=== PATIENT | male | born 1935 | race Caucasian/White ===

== ENCOUNTER 2017-03-20 11:53 | Inpatient (IN) | payer OTHER ==
[~2017-03-20] VITALS: Ht 167.6 cm; Wt 88.5 kg
--- NOTE | ~2017-03-20 | HC ---
[facility] [place] [address] CONSULTATION Name: BETTIE SHRESTHA Room #: 434-P ADM IN M.R.#: [id number] Admission: 03/21/17 Attend Phys: Rosita Richardson Discharge: Date of : 34 Report #: [id number] THIS REPORT FOR: //name// CC: Mouna Miner MD DATE OF SERVICE: 03/21/2017 PATIENT OF: Dr. Mouna Oleary and Dr. Richardson. CHIEF COMPLAINT: This is a very pleasant 81-year-old white male came to the ER with a severe L5 radiculopathy and inability to walk because he could not rely on his leg. He was falling frequently. He was also so weak that he was unable to get up out of the chair at home and had noticed that over the last 2 weeks, he was becoming progressively more short of breath and fatigued. He was noted on admission to have an iron deficiency anemia with heme-positive stools. His iron saturation is 4%. He denies any hematemesis, hematochezia, or melena. This is a reason for the gastrointestinal evaluation. PAST MEDICAL HISTORY: Significant for the worsening left radiculopathy at L5. He has a history of hyperlipidemia and hypertension. He has had possibly a TIA or stroke in the past and for that reason he has been on Plavix. He has gastroesophageal reflux and hiatal hernia. PAST SURGICAL HISTORY: Significant for skull fracture at age 4, he had tonsillectomy and adenoidectomy at age 11, and he fractured his hand at some other point in his life that required surgical repair. ALLERGIES: To ERYTHROSINE causes a rash. He is also ALLERGIC TO SULFA, AMOXICILLIN, and CEPHALOSPORINS. MEDICATIONS: Prior to admission included ascorbic acid, Plavix, glucosamine chondroitin, loratadine, multiple vitamins, Zocor, and terazosin. SOCIAL HISTORY: He drinks alcohol a couple of times a year, not extensively. He does not smoke. He did smoke until about 1976, he said he smoked a pipe for several years, but never smoked cigarettes or cigars. 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 FAMILY HISTORY: Negative for colon polyps, colon cancer, Crohn's disease, ulcerative colitis or celiac disease. REVIEW OF SYSTEMS: He denies any dysphagia or odynophagia. He does have occasional gastroesophageal reflux and he takes Tums with good relief for that. [facility] [address] [place] [address] CONSULTATION Name: BETTIE SHRESTHA Room #: 434-P [facility] IN [facility].#: [id number] Admission: 03/21/17 Attend Phys: Rosita Richardson Discharge: Date of : 34 Report #: [id number] He used to take proton pump inhibitors until he was started on Plavix and then he stopped taking PPIs. He has a history of a hiatal hernia, but no peptic ulcer disease. His weight is stable at 195 pounds. His appetite is good. He denies any abdominal pain. Denies any hematemesis, hematochezia, or melena. He has had no nausea or vomiting. Denies any history of jaundice, hepatitis, cholelithiasis, cholecystitis or pancreatitis. Nurse reports that he has had a black stool and that was heme positive when sent to the lab today. The patient states his last colonoscopy was about 12 years ago. He had an EGD at some point in his life remember when it was. PHYSICAL EXAMINATION: GENERAL: Reveals a well-developed, well-nourished 81-year-old white male who is in no obvious distress at rest, but he becomes easily fatigued and short of breath with exertion. HEENT: He is normocephalic, atraumatic. He is anicteric. HEART: Rate and rhythm are regular. He is in normal sinus rhythm right now. He does not ever be recalled being told that he was in atrial fibrillation. LUNGS: Clear to auscultation bilaterally. ABDOMEN: Rotund, but soft, bowel sounds present in all 4 quadrants. There is no palpable organomegaly or mass. There is no tenderness, rebound, or guarding. EXTREMITIES: Warm and dry. No peripheral cyanosis, clubbing, or edema. NEUROLOGIC: He appears grossly intact without lateralizing signs except for his left lower extremity. I did not do an extensive neurological exam on him. SIGNIFICANT LABORATORY DATA: BUN is elevated at 20. Liver enzymes are all normal. Iron level 18, TIBC 426, iron sats 4%. Hemoglobin 7.0 with a MCV of 69.2, RDW is 17.3, platelets and white count are normal. He has 2+ microcytosis with adequate reticulocyte count. Noncontrast MRI of the spine revealed moderate disk desiccation and diffuse posterior disk bulge at L2-L3 with mild effacement of the ventral thecal sac without significant central spinal cord stenosis. At L3-L4, there is a gfmxvzid-hj-bnblym disk desiccation with diffuse posterior disk bulge, the disk bulge abuts the descending L4 nerve roots without evidence of displacement or obvious impingement. There was mild bilateral facet arthrosis and bilateral foraminal disk bulging and endplate ossific ridge resulting in mild medial bilateral neural foraminal stenosis. At L5-S1, there is a asnl-sj-gcockjcf disk desiccation with mild diffuse disk bulge, severe bilateral facet arthrosis was noted. There is a superimposed shallow left foraminal disk protrusion, which abuts the under surface of the exiting left L5 nerve root. There is narrowing of thecal sac to 10 mm consistent with vovb-ah-jseiarnk canal stenosis. On L4-L5, there is a moderate disk desiccation with severe bilateral facet arthrosis and severe facet spurring, left greater than right. There is effacement of the descending L5 nerve root seen on axial T2 . There was narrowing of the thecal sac to 8 mm consistent with mmkgsgig-rn-ybwcpb canal stenosis. There is bilateral subarticular zone [facility] [address] [place] [address] CONSULTATION Name: BETTIE SHRESTHA Room #: 434-P ADM IN M.R.#: [id number] Admission: 03/21/17 Attend Phys: Rosita Richardson Discharge: Date of : 34 Report #: [id number] stenosis due to facet spurring. There is bilateral foraminal disk bulging and endplate osteophyte ridging resulting in mild medial right and moderate medial left neural foraminal stenosis. I think it is consistent with the symptoms that the patient is describing. IMPRESSION: 1. Newly diagnosed iron deficiency anemia with heme-positive stools. The patient denies any obvious blood loss such as hematemesis, hematochezia or melena, but he is heme positive today and his stool was some dark black colored. 2. Dyspnea on exertion. He is lightheaded with increasing fatigue and weakness over the past 2 weeks. I think this is a result of his anemia. 3. The patient has been on Plavix. He has a history of a possible transient ischemic attack versus cerebrovascular accident, this was managed earlier at this hospital. 4. Hyperlipidemia. 5. L4-L5 radiculopathy, severe. The patient cannot rely on his left leg to support him. 6. Hypertension. RECOMMENDATIONS: My recommendations are as follows: I agree with blood transfusions and iron infusions. We will hold his Plavix for now. We will prep him for colonoscopy on Saturday, for EGD and colonoscopy on Saturday. If these are negative, he will need an M2 capsule study. We will monitor his H and H closely and start him on some proton pump inhibitors. Thank you very much once again for allowing me to participate in his care, Dr. Richardson and Dr. Oleary. <ELECTRONICALLY SIGNED> By: Heena Campbell DO 03/21/17 1836 1101 1540 Heena Campbell DO /nt
--- NOTE | ~2017-03-20 | EKG ---
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 : 1935 Requested By: Brayan Michelle Order Number: [id number] MD: Zak Nova Measurements Intervals [place] Rate: 68 P: 10 MT: 189 QRS: 6 QRSD: 113 T: 18 QT: 403 QTc: 429 Interpretive Statements Sinus rhythm Abnormal R-wave progression, early transition Compared to ECG 09/28/2016 09:33:32 No significant change was found Electronically Signed On 03-21-2017 7:45:36 CDT by Zak Nova [email or web address] <ELECTRONICALLY SIGNED> By: Zak Nova MD, [facility] 03/21/17 0745 1247 124 Zak Nova MD, [facility] /EPI
[~2017-03-20 11:53] MED LIST: ALAVERT10 MG PO; ASPIRIN325; GLUCOSAMINE &1 EAC1; HYTRIN 2MG CAPSU2 M1 PO; MULTIVITAMINS1 EAC7 PO; NIACIN SR 250250 MG PO; PLAVIX 75 MG TA75 M1 PO; PRILOSEC 20 MG20 MG PO; VITAMINC500 PO; ZOCOR 20 MG TAB20 M1 PO; ZOFRAN ODT4 MG PO
[2017-03-20 11:54] VITALS: BP 182/59
[2017-03-20 12:37] LABS: ABSOLUTE NEUTROPHILS 6.3 thou/uL (1.4-8.2); BASOPHILS 0.8 % (0.0-2.0); EOSINOPHILS 1.3 % (0.0-3.0); HEMATOCRIT 22.9 % (42.0-52.0); LYMPHOCYTES 16.1 % (24.0-44.0); MCH 21.3 pg (26.0-34.0); MCHC 30.8 g/dL (28.0-37.0); MCV 69.2 fL (80.0-100.0); MONOCYTES 10.6 % (1.0-8.0); PLATELET COUNT 331 thou/uL (150-400); POLYS 71.2 % (36.0-66.0); RBC 3.31 mil/uL (4.50-6.00); RDW 17.3 % (10.5-14.5); WBC 8.8 thou/uL (4.0-11.0)
[2017-03-20 12:38] LABS: MANUAL DIFF NO
[2017-03-20 12:42] LABS: ANION GAP 11 mmol/L (7-16); BUN 20 mg/dL (7-18); CALCIUM 8.5 mg/dL (8.5-10.1); CHLORIDE 105 mmol/L (98-107); CO2 23 mmol/L (21-32); CREATININE 1.2 mg/dL (0.7-1.3); GLUCOSE 115 mg/dL (74-106); POTASSIUM 4.6 mmol/L (3.5-5.1); SODIUM 139 mmol/L (136-145)
[2017-03-20 12:49] LABS: ALBUMIN 3.7 g/dL (3.4-5.0); ALKALINE PHOSPHATASE 54 U/L (46-116); MAGNESIUM 2.1 mg/dL (1.8-2.4); SGOT 20 U/L (15-37); SGPT 21 U/L (30-65); TOTAL BILIRUBIN 0.4 mg/dL (<0.1-1.0); TOTAL PROTEIN 6.8 g/dL (6.4-8.2); TROPONIN-I < 0.04 ng/mL (<0.04-0.07)
[2017-03-20 12:56] LABS: OVALOCYTES FEW; POLYCHROMASIA OCCASIONAL
[2017-03-20 12:57] LABS: ANISOCYTOSIS 1+; MICROCYTES 2+
[2017-03-20 15:01] LABS: OBSERVED RETIC COUNT 2.89 % (0.6-2.6)
[2017-03-20 15:04] LABS: % SATURATION 4 % (20-39); IRON 18 ug/dL (65-175); TIBC 426 ug/dL (250-450); UIBC 408 ug/dL
[2017-03-20 17:00] VITALS: BP 198/80
[2017-03-20 19:31] VITALS: BP 155/65
[2017-03-21 05:10] VITALS: BP 165/73
[2017-03-21 08:00] VITALS: BP 153/88
[2017-03-21 08:16] VITALS: BP 153/88
[2017-03-21 12:32] LABS: HEMATOCRIT 24.3 % (42.0-52.0); HEMOGLOBIN 7.4 gm/dL (14.0-18.0); MCH 20.6 pg (26.0-34.0); MCHC 30.3 g/dL (28.0-37.0); MCV 68.2 fL (80.0-100.0); RBC 3.57 mil/uL (4.50-6.00); RDW 17.5 % (10.5-14.5); WBC 11.3 thou/uL (4.0-11.0)
[2017-03-21 14:31] VITALS: BP 145/67; BP 148/52
[2017-03-21 20:00] VITALS: BP 153/66
[2017-03-22 04:00] VITALS: BP 151/67
[2017-03-22 06:29] LABS: HEMATOCRIT 26.2 % (42.0-52.0); HEMOGLOBIN 7.9 gm/dL (14.0-18.0); MCH 21.6 pg (26.0-34.0); MCHC 30.1 g/dL (28.0-37.0); MCV 71.6 fL (80.0-100.0); RBC 3.66 mil/uL (4.50-6.00)
[2017-03-22 08:00] VITALS: BP 155/63
[2017-03-22] MEDS ORDERED: PROTONIX40 M1 PO (10:08)
[2017-03-22 13:29] VITALS: BP 155/63
[2017-03-26] MEDS ORDERED: GLUCOSAMINE CH1 EAC1 PO (13:53)
[2017-03-26] MEDS ORDERED: PROTONIX40 M1 PO (13:54)
[2017-03-26] MEDS ORDERED: PLAVIX 75 MG TA75 M1 PO (13:56)
== END 2017-03-22 13:57 | disposition home or self-care (01) | DRG 74 ==
LOC: ER 11:53 → EROBS 14:19 → 4S 14:19
PROVIDERS: Emergency Medicine; Hospitalist
PROC: 30233N1 Transfusion of Nonautologous Red Blood Cells into Peripheral Vein, Percutaneous Approach (ICD-10-PCS; principal; 2017-03-21)
DX: G54.4 Lumbosacral root disorders, not elsewhere classified (principal); I10 Essential (primary) hypertension; G83.30 Monoplegia, unspecified affecting unspecified side; T14.8 Other injury of unspecified body region; E78.5 Hyperlipidemia, unspecified; K21.9 Gastro-esophageal reflux disease without esophagitis; D50.9 Iron deficiency anemia, unspecified; M48.06 Spinal stenosis, lumbar region; Z86.73 Personal history of transient ischemic attack (TIA), and cerebral infarction without residual deficits; Z88.1 Allergy status to other antibiotic agents; Z88.2 Allergy status to sulfonamides; Z88.8 Allergy status to other drugs, medicaments and biological substances

== ENCOUNTER → 2017-03-27 | Outpatient (CLI) | payer OTHER ==
[~2017-03-27] VITALS: Ht 167.6 cm; Wt 88.5 kg
[~2017-03-27] MED LIST changes: +GLUCOSAMINE CH1 EAC1 PO; +PROTONIX40 M1 PO
--- NOTE | ~2017-03-27 | P ---
[facility] [place] [address] PROCEDURE REPORT Name: BETTIE SHRESTHA Room #: REG Miguelangel Ochoa#: [id number] Admission: 03/27/17 Attend Phys: Heena Campbell DO Discharge: Date of : 34 Report #: [id number] THIS REPORT FOR: //name// CC: Mouna Deras DATE OF SERVICE: 03/27/2017 PROCEDURE: Colonoscopy with biopsies. INDICATION FOR PROCEDURE: Evaluate heme positive stool, iron deficiency anemia. DESCRIPTION OF PROCEDURE: Informed consent for this procedure was obtained prior to the administration of any medication. The risks of the procedure which include bleeding, perforation, infection, complications of sedation and the possibility I could miss something have been explained to the patient and he has indicated his consent by signing. Propofol 410 mg was slowly titrated before and during this procedure and the EGD that preceded it. Digital rectal exam revealed no palpable masses or abnormalities. The TAKOn colonoscope was introduced through the anal sphincter and advanced under direct visualization to the ileocecal valve and peak into the terminal ileum revealed no abnormalities of the distal terminal ileum. The ileocecal valve is normal. The cecum appears normal. Appendiceal orifice appears normal. In the ascending colon, no abnormalities were seen. Retroflex view in the ascending colon did not reveal any other lesions on the back sides of the folds in the ascending colon. Hepatic flexure, normal mucosa. Transverse colon, normal mucosa. Splenic flexure, normal mucosa. Descending colon at 50 cm, we began to see multiple diverticula in the descending colon that are uncomplicated. In the sigmoid colon, there are even more diverticula that are extensive. These are uncomplicated. At 25 cm in the sigmoid colon, there was a 5 mm sessile polyp removed completely with a biopsy forceps in several pieces and sent to pathology lab. Good hemostasis was noted after all biopsies. The remaining sigmoid mucosa appears normal. Rectum, normal mucosa. Retroflex view did not reveal any further abnormalities. The scope was withdrawn. The patient went to the recovery area in stable condition. He tolerated the procedure well. IMPRESSION: 1. Extensive uncomplicated left-sided diverticulosis. 2. A 5 mm polyp at 25 cm that was very sessile, removed as above in toto with regular biopsy forceps and sent to pathology lab. RECOMMENDATIONS: At this point are to proceed with an M2 videoscope capsule study today if possible and we will await the biopsy results. [address] [address] PROCEDURE REPORT Name: BETTIE SHRESTHA Room #: REG ZHOU Ochoa#: [id number] Admission: 03/27/17 Attend Phys: Heena Campbell DO Discharge: Date of : 34 Report #: [id number] Thank you very much once again for allowing me to participate in his care, Dr. Oleary. <ELECTRONICALLY SIGNED> By: Heena Campbell DO 03/27/17 2145 1055 1736 Heena Campbell DO /ovidio
--- NOTE | ~2017-03-27 | S ---
[facility] [place] [address] SURGICAL PATH RPT PROCEDURE Name: BETTIE BORDEN Room #: REG CLI M.Kev.#: [id number] Admission: 03/27/17 Date of : 34 Discharge: Report #: [id number] Path Case #: [id number] PATHOLOGY REPORT COLLECTION DATE: 03/27/2017 RECEIVED DATE: 03/27/2017 SUBMITTING PHYS: Dr. Heena Campbell OTHER PHYS: Dr. Mouna Oleary SPECIMEN(S) RECEIVED: A.Bx of gastritis B.Polyp at 25 cm * * * * * * * * * * * * FINAL DIAGNOSIS: A. Gastric biopsy, "biopsy of gastritis": - Fragments of gastric mucosa revealing focal chronic reactive gastropathy. - There is no evidence of acute cryptitis, granulomas, adenomatous change, or malignancy. - The immunoperoxidase stain for Helicobacter is negative. B. Colonic mucosa, "polyp at 25 cm": - Fragments of tubular adenoma. - There is no evidence of high-grade dysplasia or malignancy. PATHOLOGIST: Elver Bowen M.D. REPORT ELECTRONICALLY SIGNED BY: Elver Bowen M.D. DATE/TIME: 03/29/2017 10:48 * * * * * * * * * * * * GROSS PATHOLOGY: A. Received in formalin labeled "Bettie Borden, biopsy of gastritis," are two segments of valle soft tissue measuring 0.7 x 0.4 x 0.1 cm in aggregate dimensions and ranging from 0.5 to 0.7 cm in maximum dimension. The specimen is submitted entirely in cassette A1. B. Received in formalin labeled "Bettie Borden, polyp at 25 cm," are five segments of valle soft tissue measuring 0.9 x 0.8 x 0.2 cm in aggregate dimensions and ranging from 0.3 to 0.5 cm in maximum dimension. The specimen is submitted entirely in cassette B1. (CAA; 03/28/2017) CLINICAL HISTORY: Anemia A: R/O H. pylori [facility] [place] [address] SURGICAL PATH RPT PROCEDURE Name: BETTIE BORDEN Room #: REG CLI M.R.#: [id number] Admission: 03/27/17 Date of : 34 Discharge: Report #: [id number] Path Case #: [id number] INITIAL CPT CODE(S): A; 07776, 78806 B; 66550 Professional services performed by [facility] at [address], [place] [address] Technical services performed by [facility] at [address] [place] [address], [facility] [address] [address]. [facility] [place] [address] PHONE: [phone] DIRECTOR: Nj Tirado M.D. * * * END OF REPORT * * *
--- NOTE | ~2017-03-27 | P ---
[facility] [place] [address] PROCEDURE REPORT Name: FADYBETTIE Room #: REG [facility] Don#: [id number] Admission: 03/27/17 Attend Phys: Heena Campbell DO Discharge: Date of : 34 Report #: [id number] THIS REPORT FOR: //name// CC: Mouna Deras DATE OF SERVICE: 03/27/2017 PROCEDURE: EGD with biopsy. He is a patient of Dr. Mouna Oleary. INDICATION FOR PROCEDURE: Iron deficiency anemia and heme positive stool of undetermined etiology. The patient has not had any hematemesis, hematochezia or melena. DESCRIPTION OF PROCEDURE: Informed consent for this procedure was obtained prior to the administration of any medication. The risks of the procedure which include bleeding, perforation, infection, complications of sedation and the possibility I could miss something have been explained to the patient. He has indicated his consent by signing. Propofol 410 mg was slowly titrated before and during this procedure for patient comfort by the anesthesia service. The Plaxican upper videoscope was introduced through the upper esophageal sphincter and advanced under direct visualization to the third portion of the duodenum. Findings are noted on withdrawal of the scope. The duodenal mucosa appears normal throughout its entirety and yellow bile was noted in the lumen of the second portion. Pylorus, normal mucosa. Antrum, erythematous mucosa. Body, normal mucosa. Biopsies are obtained x 2, 1 from the antrum and 1 from the body of the stomach for histopathology to evaluate for possible H. pylori infection. Good hemostasis was noted after these biopsies. Retroflex view in the stomach revealed a moderately sized hiatal hernia. The scope was withdrawn to the esophagus. The Z-line is appropriately located at the top the gastric folds and appears normal. The esophageal mucosa appears normal throughout its entirety. The scope was withdrawn. The patient was turned for colonoscopy. IMPRESSION: Antral erythema. Other than that, normal esophagogastroduodenoscopy to descending duodenum except for the moderate hiatal hernia. RECOMMENDATIONS: To proceed with colonoscopy at this time and we will await the biopsy results. [facility] [address] [place] [address] PROCEDURE REPORT Name: BETTIE SHRESTHA Room #: REG CLMiguelangel Ochoa#: [id number] Admission: 03/27/17 Attend Phys: Heena Campbell DO Discharge: Date of : 34 Report #: [id number] Thank you very much once again for allowing me to participate in his care, Dr. Oleary. <ELECTRONICALLY SIGNED> By: Heena Campbell DO 03/27/17 2145 1055 1732 Heena Campbell DO /nt
[2017-03-27 08:38] LABS: HEMATOCRIT 35.5 % (42.0-52.0); MCH 22.9 pg (26.0-34.0); RBC 4.8 mil/uL (4.50-6.00); WBC 11.6 thou/uL (4.0-11.0)
[2017-03-27 08:45] LABS: CALCIUM 9.3 mg/dL (8.5-10.1); CREATININE 1.3 mg/dL (0.7-1.3); POTASSIUM 4.2 mmol/L (3.5-5.1)
== END | disposition home or self-care (01) ==
LOC: GI 07:50
PROVIDERS: Internal Medicine Gastroenterology
DX: D12.5 Benign neoplasm of sigmoid colon (principal); K31.89 Other diseases of stomach and duodenum; K57.30 Diverticulosis of large intestine without perforation or abscess without bleeding; K44.9 Diaphragmatic hernia without obstruction or gangrene; I10 Essential (primary) hypertension; D64.9 Anemia, unspecified; K21.9 Gastro-esophageal reflux disease without esophagitis; Z86.73 Personal history of transient ischemic attack (TIA), and cerebral infarction without residual deficits; Z87.891 Personal history of nicotine dependence
CPT/HCPCS: 62110; 62900

== ENCOUNTER 2017-03-28 08:20 | Observation (INO) | payer OTHER ==
[~2017-03-28] VITALS: Ht 167.6 cm; Wt 88.5 kg
--- NOTE | ~2017-03-28 | HC ---
[facility] [place] [address] CONSULTATION Name: BETTIE SHRESTHA Room #: 444-P DRE Ochoa#: [id number] Admission: 03/28/17 Attend Phys: Randal Henderson DO Discharge: 03/30/17 Date of : 34 Report #: [id number] THIS REPORT FOR: //name// CC: Mouna Henderson REASON FOR CONSULTATION: Weakness and lightheadedness. HISTORY OF PRESENT ILLNESS: The patient sounds is an 81-year-old gentleman with a moderately complicated past history. He presented last Saturday with for profound weakness, exertional breathlessness and was found to have severe iron deficiency anemia with the hemoglobin of 7.4. No evidence of GI blood loss. He received 1 unit of packed cells and one bag of iron and his hemoglobin at discharge was 7.4, followup hemoglobin yesterday at the time of a colonoscopy was 11.0. He had both upper and lower endoscopy performed and capsule endoscopy. No bleeding source as of yet has been identified, although he was noted to have diverticulitis on his colonoscopy without bleeding. Today, this morning, he stood up, became profoundly weak and dyspneic. He had terrible standing. He presented back to the emergency department where his hemoglobin was 9.5. Troponin was ordered in this setting and minimally elevated at 0.09, followup troponin 6 hours later was 0.08. He denies heart failure symptoms, palpitations, near syncope or syncope. He has had TIA several years ago, which occurred while on aspirin, he was migrated from aspirin to Plavix. He ended up seeing a neurologist at [facility] where an MRI suggested a prior stroke. He has also had severe lumbar spinal stenosis with radiculopathy and left leg weakness, last week when he was admitted with leg weakness which seems to come and go. He was treated with a dose of intravenous steroids and this seems to have improved his left leg symptoms. Plans for an epidural, which have been on hold. He has been off of Plavix for the past week. ALLERGIES: He is allergic to AMOXICILLIN, CEPHALOSPORIN, ERYTHROMYCIN and SULFA. MEDICATIONS: Include Hytrin 2 mg daily, simvastatin 20 mg daily, Protonix 40 mg daily, Plavix 75 mg daily. PAST MEDICAL HISTORY: Medical records have been reviewed and include a history of hypertension, dyslipidemia, prior TIA, severe lumbar spinal stenosis with left leg radiculopathy confirmed by EMG, skull fracture at the age of 4, and tonsillectomy. SOCIAL HISTORY: He is . 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 FAMILY HISTORY: Notable for mother who had heart problems. REVIEW OF SYSTEMS: All systems negative except as that noted above. [facility] [address] [place] [address] CONSULTATION Name: FADYBETTIE Room #: 444-P DRE Ochoa#: [id number] Admission: 03/28/17 Attend Phys: Randal Henderson DO Discharge: 03/30/17 Date of : 34 Report #: [id number] PHYSICAL EXAMINATION: GENERAL: A pleasant gentleman in no distress. VITAL SIGNS: Blood pressure is 150/57, heart rate of 59 and regular. He is afebrile. HEENT: There are neither xanthelasma, subcutaneous xanthomata, oral mucosal or digital cyanosis or kyphoscoliosis present. CHEST: Clear to auscultation and percussion. CARDIOVASCULAR: Regular rate and rhythm with normal S1, S2. No murmurs or rubs. ABDOMEN: Soft and nontender. EXTREMITIES: Without cyanosis, clubbing or edema. Radial pulses are 2+. NEUROLOGIC: He is alert with a nonfocal exam. EKG, sinus rhythm, normal tracing. LABORATORY DATA: Sodium is 136, potassium 4.5, creatinine 1.0. Serum iron level is very low at 18, saturations 4%, proBNP of 88, coagulation parameters normal. Chest x-ray is normal, echocardiogram is normal, EKG is normal. IMPRESSION: 1. Tiny troponin elevation, not entirely unexpected in the setting of severe iron deficiency anemia. 2. Anemia, unknown source. 3. Prior transient ischemic attack, maintained on Plavix. 4. Severe central spinal stenosis L4-L5 with effacement of the exiting left L5 nerve root. 5. Dyslipidemia. RECOMMENDATIONS: 1. Continued of Plavix for now. 2. Obtain results of capsule endoscopy. 3. Intravenous iron infusion. 4. At this point, I believe that his symptoms are on the basis of his anemia, certainly coronary artery disease is a possibility, although to go down that path of evaluation and possible treatment would potentially involve aggressive antiplatelet and anticoagulant therapy, which is currently contraindicated. At this point, maintaining his hemoglobin is the primary treatment recommendation. I have discussed these issues with the patient and his . Thank you for asking me to participate in his care. <ELECTRONICALLY SIGNED> By: Zak Nova MD, FACC 03/30/17 1630 1839 0224 Zak Nova MD, FACC /nt
--- NOTE | ~2017-03-28 | EKG ---
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
--- NOTE | ~2017-03-28 | 2DMMODE ---
[facility] [address] [facility] [email or web address] [address] 2 D/M-MODE ECHOCARDIOGRAM Name: FADYBETTIE Room #: 444-P ADM IN M.R.#: [id number] Admission: 03/28/17 Attend Phys: Randal Henderson, Discharge: Date of : 33 Date of Service: 03/28/17 1548 Report #: [id number] THIS REPORT FOR: //name// APPROVED REPORT Study performed: 03/28/2017 14:53:18 EXAM: Comprehensive 2D, Doppler, and color-flow Echocardiogram Patient Location: Echo lab Room #: 444 Other Information Study Quality: Adequate Indications Dyspnea Hypertension/HDD 2D Dimensions RVDd: 30.40 mm LVEF(%): 66.24 (>50%) IVSd: 14.40 (7-11mm) LVOT Diam: 18.40 (18-24mm) LVDd: 30.52 mm PWd: 13.58 (7-11mm) Ascending Ao: 29.87 (22-36mm) LVDs: 19.75 (25-40mm) Aortic Root: 32.46 mm IVC: 21.00 mm Daley's LVEF: 66.24 % Volumes Left Atrial Volume (Systole) Single Plane 4CH: 44.20 mL Single Plane 2CH: 44.25 mL LA ESV Index: 25.00 mL/m2 Aortic Valve AoV Peak Raudel.: 1.19 m/s AO Peak Gr.: 5.64 mmHg LVOT Max P.38 mmHg LVOT Max V: 0.92 m/s KM Vmax: 2.06 cm2 Mitral Valve E/A Ratio: 0.7 MV Decel. Time: 325.77 ms MV E Max Raudel.: 0.75 m/s MV A Raudel.: 1.07 m/s MV PHT: 94.47 ms [facility] [address] [address] 2 D/M-MODE ECHOCARDIOGRAM Name: BETTIE SHRESTHA Room #: 444-P [facility] IN M.R.#: [id number] Admission: 03/28/17 Attend Phys: Randal Henderson, Discharge: Date of : 34 Date of Service: 03/28/17 1548 Report #: [id number] IVRT: 152.25 ms Pulmonary Valve PV Peak Raudel.: 1.37 m/s PV Peak Gr.: 7.52 mmHg Pulmonary Vein P Vein S: 0.33 m/s P Vein A: 0.16 m/s P Vein D: 0.50 m/s P Vein A Dur.: 93.4 msec P Vein S/D Ratio: 0.66 Tricuspid Valve TR Peak Raudel.: 2.94 m/s RAP Estimate: 10.00 mmHg TR Peak Gr.: 34.61 mmHg Left Ventricle The left ventricle is normal size. Mild concentric left ventricular hypertrophy. The left ventricular systolic function is normal. The left ventricular ejection fraction is within the normal range. LVEF is 65%. Grade I - abnormal relaxation pattern. Right Ventricle The right ventricle is normal size. The right ventricular systolic function is normal. Atria The left atrium size is normal. The right atrium size is normal. Aortic Valve The Aortic valve is sclerotic. No aortic regurgitation is present. There is no aortic valvular stenosis. Mitral Valve The mitral valve is normal in structure. There is no mitral valve regurgitation noted. No evidence of mitral valve stenosis. Tricuspid Valve The tricuspid valve is normal in structure. Trace tricuspid regurgitation. Pulmonic Valve The pulmonary valve is normal in structure. Trace pulmonic regurgitation. Great Vessels The aortic root is normal in size. IVC is dilated and collapses [facility] [address] [place] [address] 2 D/M-MODE ECHOCARDIOGRAM Name: BETTIE SHRESTHA Room #: 444-P [facility] IN .R.#: [id number] Admission: 03/28/17 Attend Phys: Randal Henderson, Discharge: Date of : 34 Date of Service: 03/28/17 1548 Report #: [id number] >50% with inspiration. Pericardium There is no pericardial effusion. There is no pleural effusion. <Conclusion> The left ventricle is normal size. The left ventricular systolic function is normal. Grade I - abnormal relaxation pattern. The right ventricle is normal size. The left atrium size is normal. The Aortic valve is sclerotic. There is no aortic valvular stenosis. The mitral valve is normal in structure. Trace tricuspid regurgitation. There is no pericardial effusion. <ELECTRONICALLY SIGNED> By: Eber Newton MD 03/28/17 1548 1548 1548 Eber Newton MD /INF
--- NOTE | ~2017-03-28 | HPC ---
[facility] [place] [address] PAIN MANAGEMENT CONSULTATION Name: BETTIE SHRESTHA Room #: 444-P DRE Ocoha#: [id number] Admission: 03/28/17 Attend Phys: Randal Henderson DO Discharge: 03/30/17 Date of : 34 Report #: [id number] THIS REPORT FOR: //name// CC: Mouna Richardson MD DATE OF SERVICE: 03/29/2017 CHIEF COMPLAINT: Weakness in the legs and I was going to have an epidural injection this week. FOLLOWUP HISTORY: The patient is an 81-year-old gentleman who has been seen in the hospital. He was complaining about pain in his left leg with weakness. He did report that he had fallen. The patient has had some problems with weakness in his leg in 2016. He reports that he has been ambulating with a cane. He has felt that his leg has "given out." He had some weakness in his lower extremities in the past. At that time, he was found to have had a transient ischemic attack. He has been treated with Plavix. He has withheld his Plavix with the thought that he would have an epidural steroid injection this week. It was found that his hemoglobin was low at 7.9. The patient has been transfused a unit of blood. He has also been seen by the stitcher operator. An EGD and colonoscopy have been performed. ALLERGIES: AMOXICILLIN caused a rash. CEPHALOSPORIN, rash and SULFA. CURRENT MEDICATIONS: Protonix 40 mg daily, Hytrin 2 mg daily, loratadine 10 mg, ascorbic acid 500 mg, Zocor 20 mg, multivitamins, glucosamine chondroitin, Protonix 40 mg daily. Plavix has been held for the last week. PAST MEDICAL HISTORY: 1. Hypertension. 2. History of a stroke and transient ischemic attack, treated with Plavix. 3. Lumbar radiculopathy at L4-L5 causing severe weakness involving the left lower extremity to be weak. 4. Gastroesophageal reflux disease, controlled with the medications. 5. Hiatal hernia. 6. Dyslipidemia. 7. Iron deficiency anemia, hemoglobin in the 7s. SOCIAL HISTORY: A former smoker, quit greater than a year ago, occasional alcoholic use. PHYSICAL EXAMINATION: The patient is in a wheelchair. He is using a cane to help ambulate. [address] [address] PAIN MANAGEMENT CONSULTATION Name: BETTIE SHRESTHA Room #: 444-P DRE Ochoa#: [id number] Admission: 03/28/17 Attend Phys: Randal Henderson DO Discharge: 03/30/17 Date of : 34 Report #: [id number] MRI of the lumbar spine; MRI dated 03/20/2017 reveals: 1. At L3-L4, there is a moderate to severe disk desiccation with a diffuse posterior disk bulge. The disk bulge abuts the descending L4 nerve root. There is mild bilateral facet arthrosis. At L4-L5, there is moderate disk desiccation with severe bilateral facet arthrosis and severe facet spurring, left greater than right. There is effacement of the descending left L5 nerve seen. There is a narrowing of the thecal sac to 8 mm consistent with ixlgpqkx-jb-olhidf/neural foraminal canal stenosis. 2. At L5-S1, there is moderate disk desiccation with a mild diffuse disk bulge. There is severe bilateral facet arthrosis with small amount of fluid signal. There is superimposed shallow left foraminal disk protrusion which abuts the undersurface of the exiting L5 nerve root. Thecal sac narrows to 10 mm consistent with mild canal stenosis. IMPRESSION: 1. Lumbar radiculopathy involving the L5/L4 area. The patient has pain and discomfort consistent in the L4-L5 distribution on the left. 2. History of transient ischemic attack, treated with Plavix. The patient has held his Plavix for the last week. 3. Anemia. The patient has had hemoglobin in the 7 range. RECOMMENDATIONS: We discussed treatment options with the patient. We will proceed with an epidural steroid injection using the transforaminal approach on the left at L4-L5. Risks and benefits of the procedure were explained to the patient. We reviewed his MRI. PROCEDURE NOTE: The patient was placed in the prone position. Fluoroscopy was used to identify the left L4-L5 interspace. This area had been sterilely prepped with Betadine and infiltrated with 0.25% bupivacaine. A 20-gauge spinal needle was then advanced using fluoroscopy into the appropriate placement for the transforaminal injection. A 0.25% bupivacaine was infiltrated into this area. A total of 80 mg Depo-Medrol was injected. The patient's pain decreased to zero at the time of his discharge back to the hospital floor. He will follow up in the future as needed. We would like to thank you for letting us participate in his care. We hope he continues to improve. <ELECTRONICALLY SIGNED> By: Mika Sauer MD 04/10/17 0810 1343 0153 Mika Sauer MD /nt
--- NOTE | ~2017-03-28 | EKG ---
[address] [address] ELECTROCARDIOGRAM REPORT Name: FADYBETTIE Room #: 444-[facility] M.R.#: [id number] Admission: 03/28/17 Attend Phys: Randal Henderson DO Discharge: 03/30/17 Date of : 34 Report #: [id number] THIS REPORT FOR: //name// [facility] Test Date: 2017-03-29 Test Time: 06:46:57 Pat Name: BETTIE SHRESTHA Department: Room: 444 Gender: M Property Underwriter: angeline : 1935 Requested By: Zak Nova Order Number: [id number] MD: Zak Nova Measurements Intervals [place] Rate: 57 P: 16 NC: 196 QRS: 19 QRSD: 96 T: 85 QT: 416 QTc: 405 Interpretive Statements Sinus rhythm Atrial premature complex Abnormal R-wave progression, early transition Borderline ST and T abnormalities Compared to ECG 03/28/2017 09:09:20 Atrial premature complex(es) now present Electronically Signed On 03-30-2017 16:33:50 CDT by Zak Nova [email or web address] <ELECTRONICALLY SIGNED> By: Zak Nova MD, [facility] 03/30/17 1633 0646 0646 Zak Nova MD, [facility] /EPI
[2017-03-28 08:26] VITALS: BP 149/65
[2017-03-28 09:34] LABS: HEMATOCRIT 29.9 % (42.0-52.0); HEMOGLOBIN 9.5 gm/dL (14.0-18.0); MCH 23.1 pg (26.0-34.0); MCHC 31.9 g/dL (28.0-37.0); MCV 72.7 fL (80.0-100.0); RBC 4.11 mil/uL (4.50-6.00); RDW 20.5 % (10.5-14.5); WBC 8.1 thou/uL (4.0-11.0)
[2017-03-28 09:42] LABS: CALCIUM 8.7 mg/dL (8.5-10.1); CREATININE 1.5 mg/dL (0.7-1.3); POTASSIUM 4.5 mmol/L (3.5-5.1)
[2017-03-28 09:48] LABS: APTT 26.6 Seconds (24.5-32.8); INR 1.1; PROTIME 11.4 Seconds (9.3-11.4)
[2017-03-28 09:50] LABS: TROPONIN-I 0.09 ng/mL (<0.04-0.07)
[2017-03-28 11:43] VITALS: BP 156/69
[2017-03-28 12:45] VITALS: BP 127/58
[2017-03-28 15:55] VITALS: BP 152/57
[2017-03-28 20:15] VITALS: BP 142/61
[2017-03-29 04:23] VITALS: BP 158/73
[2017-03-29 05:55] LABS: HEMATOCRIT 30.1 % (42.0-52.0); HEMOGLOBIN 9.6 gm/dL (14.0-18.0); MCH 23.2 pg (26.0-34.0); MCV 72.4 fL (80.0-100.0); PLATELET COUNT 240 thou/uL (150-400); RBC 4.16 mil/uL (4.50-6.00); RDW 20.6 % (10.5-14.5); WBC 10.4 thou/uL (4.0-11.0)
[2017-03-29 05:58] LABS: MANUAL DIFF YES
[2017-03-29 05:59] LABS: CALCIUM 8.5 mg/dL (8.5-10.1); CREATININE 1.3 mg/dL (0.7-1.3); POTASSIUM 4.3 mmol/L (3.5-5.1)
[2017-03-29 07:13] VITALS: BP 148/63
[2017-03-29 07:14] LABS: ABSOLUTE NEUTROPHILS 8.1 thou/uL (1.4-8.2); ANISOCYTOSIS 2+; HYPOCHROMASIA 1+; MICROCYTES 1+; PLATELET ESTIMATE NORMAL; TOTAL CELL COUNT 100
[2017-03-29 07:15] LABS: OVALOCYTES OCCASIONAL; POIKILOCYTOSIS SLIGHT; POLYCHROMASIA SLIGHT
[2017-03-29 10:51] VITALS: BP 148/63
[2017-03-29 15:37] VITALS: BP 148/63
[2017-03-29 18:01] VITALS: BP 156/58
[2017-03-29 19:18] VITALS: BP 145/66
[2017-03-30 03:33] LABS: HEMATOCRIT 31.1 % (42.0-52.0); HEMOGLOBIN 9.9 gm/dL (14.0-18.0); MCHC 31.7 g/dL (28.0-37.0); MCV 72.8 fL (80.0-100.0); PLATELET COUNT 259 thou/uL (150-400); RBC 4.28 mil/uL (4.50-6.00); RDW 21.3 % (10.5-14.5); WBC 8.3 thou/uL (4.0-11.0)
[2017-03-30 03:44] LABS: CALCIUM 8.7 mg/dL (8.5-10.1); CREATININE 1.2 mg/dL (0.7-1.3); POTASSIUM 4.2 mmol/L (3.5-5.1)
[2017-03-30 03:47] LABS: MANUAL DIFF YES
[2017-03-30 04:57] LABS: ABSOLUTE NEUTROPHILS 6.7 thou/uL (1.4-8.2); ANISOCYTOSIS 2+; TOTAL CELL COUNT 100
[2017-03-30 04:58] LABS: HYPOCHROMASIA 1+
[2017-03-30 04:59] LABS: MICROCYTES 1+; POLYCHROMASIA 1+
[2017-03-30 05:43] VITALS: BP 151/71
[2017-03-30 08:19] VITALS: BP 142/57
[2017-03-30 11:21] LABS: ABSOLUTE RETIC COUNT 0.1618 10^6/uL; OBSERVED RETIC COUNT 3.74 % (0.6-2.6)
[2017-04-01 15:07] LABS: KAPPA FREE LIGHT CHAINS 13.81 mg/L (3.30-19.40); KAPPA/LAMBDA RATIO 1.36 (0.26-1.65); LAMBDA FREE LIGHT CHAINS 10.18 mg/L (5.71-26.30)
[2017-04-02 14:08] LABS: TRANSFERRIN RECEPTOR ASSAY 49.1 nmol/L (12.2-27.3)
[2017-04-05 08:11] LABS: A/G RATIO 1.2 (0.7-1.7); ALBUMIN 3.3 g/dL (2.9-4.4); ALPHA 1 0.2 g/dL (0.0-0.4); ALPHA 2 0.8 g/dL (0.4-1.0); GAMMA 0.6 g/dL (0.4-1.8); M-SPIKE Not Observed g/dL (Not Observed)
[2017-04-09 09:18] LABS: IgA 202; IgG 599; IgM 47
[2017-04-12] MEDS ORDERED: PEPCID20 MG PO (09:46)
== END 2017-03-30 15:55 | disposition home or self-care (01) ==
LOC: ER 08:20 → 4S 10:54 → EROBS 10:54 → 4S 11:27
PROVIDERS: Emergency Medicine; Family Medicine; Internal Medicine Hematology & Oncology
DX: M54.16 Radiculopathy, lumbar region (principal); I10 Essential (primary) hypertension; E78.5 Hyperlipidemia, unspecified; D50.9 Iron deficiency anemia, unspecified; K44.9 Diaphragmatic hernia without obstruction or gangrene; K21.9 Gastro-esophageal reflux disease without esophagitis; R79.89 Other specified abnormal findings of blood chemistry; Z86.73 Personal history of transient ischemic attack (TIA), and cerebral infarction without residual deficits; Z72.89 Other problems related to lifestyle; Z87.891 Personal history of nicotine dependence

== ENCOUNTER → 2017-04-12 | Outpatient (CLI) | payer OTHER ==
[~2017-04-12] VITALS: Ht 167.6 cm; Wt 87.1 kg
[~2017-04-12] MED LIST changes: +PEPCID20 MG PO
--- NOTE | ~2017-04-12 | HPC ---
[facility] [place] [address] PAIN MANAGEMENT CONSULTATION Name: BETTIE SHRESTHA Room #: REG [facility]..#: [id number] Admission: 04/12/17 Attend Phys: Mika Sauer MD Discharge: Date of : 34 Report #: [id number] THIS REPORT FOR: //name// CC: Mouna Sauer DATE OF SERVICE: 04/12/2017 PRIMARY CARE PHYSICIAN: Mouna Oleary DO. FOLLOWUP COMPLAINT: "The pain is better. My leg is still a little weak and I walk with my cane at home". FOLLOWUP HISTORY: The patient is an 81-year-old gentleman who has been seen in the pain clinic because of lumbar radiculopathy. He has experienced pain and discomfort in the left L4-L5 distribution. He was hospitalized. He was brought to the pain clinic, at which time, a transforaminal epidural steroid injection was performed. He gleaned significant benefit greater than 50% after the last injection. He was having some weakness as well as some pain down in his ankle. He has had no complication from the procedure. He continues to note some weakness in his leg. He has not fallen at home. He does use a cane to help with ambulation. His biggest concerns is continued weakness in the left lower extremity. He feels that his energy level has increased since he has been given iron as well as some blood replacement. His hemoglobin had been down to 7.9. PHYSICAL EXAMINATION: GENERAL: The patient is walking with a cane. VITAL SIGNS: Blood pressure 171/67, respiratory rate 15 and room air saturation is 99%. Height 5 feet 6 inches, weight is 87 kilograms and BMI is 31. MUSCULOSKELETAL: The patient has not fallen at home, but does walk with use of a cane. He does perceive that his leg on the left side is weak. IMPRESSION: 1. Lumbar radiculopathy with weakness in the left leg - improved after the last injection by greater than 50%. 2. History of a stroke/transient ischemic attack, treated with Plavix. The patient has not taken his Plavix. 3. Lumbar radiculopathy, L4-L5, causing severe weakness involving the left lower extremity. 4. Hypertension. 5. Gastroesophageal reflux disease, controlled with medications. 6. Hiatal hernia. 7. Anemia. The patient feels stronger since he has had transfusion. 8. Dyslipidemia. [address] [address] PAIN MANAGEMENT CONSULTATION Name: BETTIE SHRESTHA Room #: REG CLI HernandezKevHernandez#: [id number] Admission: 04/12/17 Attend Phys: Mika Sauer MD Discharge: Date of : 34 Report #: [id number] RECOMMENDATIONS: We discussed the treatment options with the patient and his . Risks and benefits of another transforaminal epidural steroid injection were discussed. Possible complications were reviewed. The patient and his feel that this would be a reasonable option to proceed. DESCRIPTION OF PROCEDURE: The patient was placed in the prone position. Fluoroscopy was used to identify the left L5-S1 nerve root area. A 0.25% bupivacaine was infiltrated into the area after it had been sterilely prepped with Betadine. A 20-gauge spinal needle was then advanced using the transforaminal approach. A total of 80 mg Depo-Medrol, 20 mg triamcinolone and 2 mL of 0.25% bupivacaine was injected. The patient tolerated the procedure well. His pain was rated at one at the time of discharge. A total of 20 seconds fluoroscopy time was used. He will return in the future as needed. We would like to thank you for letting us participate in his care. We hope he continues to improve. By: 1311 1451 Mika Sauer MD /ovidio
[2017-04-12 09:41] VITALS: BP 171/67
== END | disposition home or self-care (01) ==
LOC: PAIN 03-29 06:33
DX: M54.16 Radiculopathy, lumbar region (principal); I10 Essential (primary) hypertension; K21.9 Gastro-esophageal reflux disease without esophagitis; E78.5 Hyperlipidemia, unspecified; D50.9 Iron deficiency anemia, unspecified; K44.9 Diaphragmatic hernia without obstruction or gangrene; Z86.73 Personal history of transient ischemic attack (TIA), and cerebral infarction without residual deficits; Z98.890 Other specified postprocedural states

== ENCOUNTER 2017-06-14 08:34 | Emergency (ER) | payer OTHER ==
[~2017-06-14] VITALS: Ht 170.2 cm; Wt 79.4 kg
--- NOTE | ~2017-06-14 | EKG ---
[address] [place] [address] ELECTROCARDIOGRAM REPORT Name: BETTIE SHRESTHA Room #: REG RADHA Ochoa#: [id number] Admission: 06/14/17 Attend Phys: Discharge: Date of : 34 Report #: [id number] THIS REPORT FOR: //name// [facility] ED Test Date: 2017-06-14 Test Time: 08:38:58 Pat Name: BETTIE SHRESTHA Department: Room: Gender: Photograph Inspector: hom : 1935 Requested By: Dipak Rodriguez Order Number: [id number] MD: Miguel Angel Campos Measurements Intervals [place] Rate: 68 P: 4 CT: 200 QRS: 4 QRSD: 92 T: 52 QT: 386 QTc: 411 Interpretive Statements Sinus rhythm Compared to ECG 03/29/2017 06:46:57 Atrial premature complex(es) no longer present T-wave abnormality no longer present Electronically Signed On 06-14-2017 10:16:40 CDT by Miguel Angel Campos [email or web address] <ELECTRONICALLY SIGNED> By: Miguel Angel Campos MD 06/14/17 1016 D: [id number] 7 Miguel Angel Campos MD /HUSEYIN
[2017-06-14 09:17] LABS: HEMOGLOBIN 14.1 gm/dL (14.0-18.0); MCH 29.5 pg (26.0-34.0); MCHC 34.4 g/dL (28.0-37.0); MCV 85.7 fL (80.0-100.0); PLATELET COUNT 208 thou/uL (150-400); RBC 4.78 mil/uL (4.50-6.00); RDW 24.3 % (10.5-14.5)
[2017-06-14 09:19] LABS: MANUAL DIFF YES
[2017-06-14 09:20] LABS: ANION GAP 10 mmol/L (7-16); BUN 16 mg/dL (7-18); CALCIUM 9.2 mg/dL (8.5-10.1); CHLORIDE 104 mmol/L (98-107); CO2 25 mmol/L (21-32); CREATININE 1.2 mg/dL (0.7-1.3); GLUCOSE 116 mg/dL (74-106); POTASSIUM 4.5 mmol/L (3.5-5.1); SODIUM 139 mmol/L (136-145)
[2017-06-14 09:29] LABS: TROPONIN-I < 0.04 ng/mL (<0.04-0.07)
[2017-06-14 10:18] LABS: TOTAL CELL COUNT 100
[2017-06-14 10:19] LABS: ANISOCYTOSIS 2+
[2017-06-14 10:20] LABS: POLYCHROMASIA OCCASIONAL
[2017-06-14 10:21] LABS: MICROCYTES 1+
== END 2017-06-14 10:00 | disposition home or self-care (01) ==
LOC: ER 08:34
PROVIDERS: Emergency Medicine
DX: R25.3 Fasciculation (principal); I10 Essential (primary) hypertension; E78.5 Hyperlipidemia, unspecified; F10.99 Alcohol use, unspecified with unspecified alcohol-induced disorder; Z98.890 Other specified postprocedural states; Z90.89 Acquired absence of other organs; Z88.1 Allergy status to other antibiotic agents; Z88.2 Allergy status to sulfonamides; Z87.891 Personal history of nicotine dependence

== ENCOUNTER 2017-10-15 08:55 | Inpatient (IN) | payer OTHER ==
[~2017-10-15] VITALS: Ht 170.2 cm; Wt 86.2 kg
--- NOTE | ~2017-10-15 | EKG ---
[address] [address] ELECTROCARDIOGRAM REPORT Name: BETTIE SHRESTHA Room #: 350-P ADM IN M.R.#: [id number] Admission: 10/15/17 Attend Phys: Rosie Marcos MD Discharge: Date of : 34 Report #: [id number] THIS REPORT FOR: //name// [facility] ED Test Date: 2017-10-15 Test Time: 09:02:30 Pat Name: BETTIE SHRESTHA Department: Room: 350 Gender: M Household Manager: Dorothy MCLAIN RN : 1935 Requested By: Rene Matute Order Number: [id number] MD: Zak Nova Measurements Intervals [place] Rate: 82 P: 9 MS: 187 QRS: 2 QRSD: 91 T: 4 QT: 356 QTc: 416 Interpretive Statements Sinus rhythm Borderline T abnormalities, inferior leads Compared to ECG 06/14/2017 08:38:58 T-wave abnormality now present Electronically Signed On 10-16-2017 9:18:[address] LIGHT SERVICER SUPERVISOR by Zak Nova [email or web address] <ELECTRONICALLY SIGNED> By: Zak Nova MD, [facility] 10/16/1718 09 1 Zak Nova MD, [facility] /EPI
--- NOTE | ~2017-10-15 | H ---
[facility] [place] [address] HISTORY AND PHYSICAL Name: BETTIE SHRESTHA Room #: 350-P ADM IN M.R.#: [id number] Admission: 10/15/17 Attend Phys: Rosie Marcos MD Discharge: Date of : 34 Report #: [id number] THIS REPORT FOR: //name// CC: Mouna Marcos DATE OF SERVICE: 10/15/2017 CHIEF COMPLAINT: Bilateral lower extremity weakness. HISTORY OF PRESENT ILLNESS: The patient is an 82-year-old man with history of TIA and stroke, who experienced severe bilateral lower extremity weakness earlier today. He presented to the emergency room. Weakness has resolved. CT scan of the brain was unremarkable. The patient also had MRI of the brain, that showed chronic changes. Thoracic spine was negative for any acute findings. The patient also has history of lumbar stenosis, based on MRI a few months ago. He walks with a cane. However, he states that his weakness was more prominent today. Otherwise, he has been stable during the emergency room course. PAST MEDICAL HISTORY: 1. TIA. 2. History of CVA, with gait difficulty. 3. Lumbar stenosis. 4. GERD. 5. Hypertension. CURRENT MEDICATIONS: Plavix 75 mg a day, Pepcid 20 mg b.i.d., loratadine 10 mg a day, multivitamins, Zocor 20 mg a day, terazosin 2 mg a day, and vitamin C 500 mg a day. FAMILY HISTORY: Reviewed and not pertinent to the patient's current condition. SOCIAL HISTORY: The patient lives with his . He does not smoke cigarettes and does not drink alcohol. PHYSICAL EXAMINATION: GENERAL: The patient is an elderly man, in no apparent distress. VITAL SIGNS: Blood pressure is 143/81, heart rate is 70 and regular, respiration is 18, temperature is 98.6, and oxygen saturation is 97%. HEENT: Pupils are equal. Eye movements are normal. Sclerae are anicteric. NECK: Supple. The patient does not have JVD. Carotid bruits are not appreciated. RESPIRATORY: Chest moves symmetrically with breathing. The patient does not have wheezing or crackles. CARDIOVASCULAR: The patient has regular rhythm and rate. He has no murmurs, [address] [address] HISTORY AND PHYSICAL Name: BETTIE SHRESTHA Room #: [address] [place] [address] [place] .R.#: [id number] Admission: 10/15/17 Attend Phys: Rosie Marcos MD Discharge: Date of : 34 Report #: [id number] gallops, or rubs. GASTROINTESTINAL: Abdomen is soft, nondistended, and nontender. Bowel sounds are normal. Hepatomegaly or splenomegaly is not appreciated. MUSCULOSKELETAL: The patient has no joint deformities. He has no edema, cyanosis, or clubbing. NEUROLOGIC: He is alert and oriented x3. No focal deficit is identified. SKIN: Skin is dry and warm. The patient has no skin lesions. LABS: On metabolic profile, the patient has normal electrolytes, and normal kidney function. Glucose is 209, on the random specimen. CBC with differential is normal. ASSESSMENT AND PLAN: 1. Bilateral lower extremity weakness, acute on chronic. Likely due to lumbar stenosis, but transient ischemic attack cannot be ruled out. As noted, the patient's symptoms resolved, and currently he is at baseline. MRI of the brain as well as T-spine MRI are unremarkable. We will obtain cardiac echo and carotid Doppler. Neurologist consultation is appreciated. 2. Hyperglycemia, no history of diabetes. Check hemoglobin A1c, and check fasting lipid panel. 3. Hypertension. The patient takes terazosin, that will be continued unchanged. 4. Deep venous thrombosis prophylaxis. SubQ Lovenox. <ELECTRONICALLY SIGNED> By: Rosie Marcos MD 10/16/17 0746 1601 1641 Rosie Marcos MD /nt
--- NOTE | ~2017-10-15 | D ---
[facility] [place] [address] [address] DISCHARGE SUMMARY Name: FADYBETTIE Room #: 350-P [facility] IN M.R.#: [id number] Admission: 10/15/17 Attend Phys: Rosie Marcos MD Discharge: 10/16/17 Date of : 34 Report #: [id number] THIS REPORT FOR: //name// CC: Mouna Marcos DATE OF SERVICE: 10/16/2017 HISTORY OF PRESENT ILLNESS: The patient is an 82-year-old man with history of lumbar stenosis, who came to the hospital with bilateral lower extremity weakness. Please refer to the admission H and P for details. In brief, shortly after admission, the patient's weakness has improved, and returned to baseline. Due to the patient's previous history of TIAs, this was one of the considerations. HOSPITALIZATION COURSE: The patient was hospitalized. TIA workup was initiated. The patient had CT and MRI of the brain, that showed no acute findings. Carotid Doppler showed no stenosis. Cardiac echo was unremarkable, except with grade 1 diastolic dysfunction. Ejection fraction was normal. Speech therapist evaluated the patient, and no abnormalities were found. LDL is 74. Hemoglobin A1c is 5.5. The patient will be seen and evaluated by physical therapist today, but the patient is already walking in the hallways. The patient's hospital stay was uneventful. Today, he feels well, and he would like to go home. He will be discharged home on close outpatient followup. DISCHARGE DIAGNOSES: Exacerbation of bilateral lower extremity weakness, likely due to lumbar stenosis, documented on MRI a few months ago. Transient ischemic attack is less likely. SECONDARY DIAGNOSES: 1. History of transient ischemic attack. 2. History of cerebrovascular accident, with gait difficulty. 3. Lumbar stenosis. 4. Gastroesophageal reflux disease. 5. Hypertension. DISCHARGE MEDICATIONS: Please refer to the medication reconciliation list. In brief, home medications are continued unchanged. DISPOSITION: The patient is discharged home. [facility] [address] [place] [address] DISCHARGE SUMMARY Name: BETTIE SHRESTHA Room #: 350-P [facility] IN ..#: [id number] Admission: 10/15/17 Attend Phys: Rosie Marcos MD Discharge: 10/16/17 Date of : 34 Report #: [id number] FOLLOWUP PLAN: Follow up with the primary care physician in 1-2 weeks. <ELECTRONICALLY SIGNED> By: Rosie Marcos MD 10/17/17 1635 1018 1056 Rosie Marcos MD /nt
--- NOTE | ~2017-10-15 | 2DMMODE ---
[facility] [address] [place] [address] 2 D/M-MODE ECHOCARDIOGRAM Name: BETTIE SHRESTHA Room #: 350-P ADM IN M.R.#: [id number] Admission: 10/15/17 Attend Phys: Rosie Marcos Discharge: Date of : 33 Date of Service: 10/16/17 0933 Report #: [id number] THIS REPORT FOR: //name// APPROVED REPORT Study performed: 10/16/2017 08:37:01 EXAM: Comprehensive 2D, Doppler, and color-flow Echocardiogram Patient Location: Echo lab Room #: 350 Status: routine BSA: 1.98 HR: 81 bpm BP: 167/75 mmHg Other Information Study Quality: Adequate Indications CVA/TIA Echo Enhancing Agent Indication: Rule out Shunt Agent(s) / Amount(s) Used: Agitated Saline 7 cc 2D Dimensions RVDd: 35.57 mm LVEF(%): 69.96 (>50%) IVSd: 11.37 (7-11mm) LVOT Diam: 23.08 (18-24mm) LVDd: 44.74 mm PWd: 11.32 (7-11mm) Ascending Ao: 31.10 (22-36mm) LVDs: 27.15 (25-40mm) Aortic Root: 28.25 mm Daley's LVEF: 69.96 % Volumes Left Atrial Volume (Systole) Single Plane 4CH: 46.71 mL Single Plane 2CH: 35.52 mL LA ESV Index: 22.00 mL/m2 Aortic Valve AoV Peak Raudel.: 1.32 m/s AO Peak Gr.: 6.97 mmHg LVOT Max P.82 mmHg LVOT Max V: 1.21 m/s KM Vmax: 3.82 cm2 [facility] [place] [address] 2 D/M-MODE ECHOCARDIOGRAM Name: BETTIE SHRESTHA Room #: 350-[facility] IN M.R.#: [id number] Admission: 10/15/17 Attend Phys: Rosie Marcos Discharge: Date of : 33 Date of Service: 10/16/17 0933 Report #: [id number] Mitral Valve E/A Ratio: 0.7 MV Decel. Time: 318.53 ms MV E Max Raudel.: 0.81 m/s MV A Raudel.: 1.13 m/s MV PHT: 92.37 ms IVRT: 119.95 ms Pulmonary Valve PV Peak Raudel.: 1.49 m/s PV Peak Gr.: 8.91 mmHg Pulmonary Vein P Vein S: 0.58 m/s P Vein A: 0.33 m/s P Vein D: 0.33 m/s P Vein A Dur.: 92.3 msec P Vein S/D Ratio: 1.76 Tricuspid Valve TR Peak Raudel.: 2.50 m/s TR Peak Gr.: 25.03 mmHg PA Pressure: 25.00 mmHg Left Ventricle The left ventricle is normal size. There is normal LV segmental wall motion. There is normal left ventricular wall thickness. The left ventricular systolic function is normal. The left ventricular ejection fraction is within the normal range. LVEF is 65%. Grade I - abnormal relaxation pattern. Right Ventricle The right ventricle is normal size. The right ventricular systolic function is normal. Atria The left atrium size is normal. No obvious shunting by contrast bubble injection Right atrium is mildly dilated. Aortic Valve Aortic valve is calcified. No aortic regurgitation is present. There is no aortic valvular stenosis. Mitral Valve Mild mitral annular calcification Trace mitral regurgitation. No evidence of mitral valve stenosis. Tricuspid Valve The tricuspid valve is normal in structure. There is trace tricuspid [facility] [address] [place] [address] 2 D/M-MODE ECHOCARDIOGRAM Name: BETTIE SHRESTHA Room #: 350-P ADM IN [facility]#: [id number] Admission: 10/15/17 Attend Phys: Rosie Marcos Discharge: Date of : 33 Date of Service: 10/16/17 0933 Report #: [id number] regurgitation. Estimated PAP 25 mmHg. Plus the right atrial pressure. There is no pulmonary hypertension. Pulmonic Valve The pulmonary valve is normal in structure. There is no pulmonic valvular regurgitation. Great Vessels The aortic root is normal in size. IVC is not well visualized. Pericardium There is no pericardial effusion. <Conclusion> The left ventricular systolic function is normal. There is normal LV segmental wall motion. LVEF is 65%. Grade I diastolic dysfunction No obvious shunting by contrast bubble injection Aortic valve is calcified. No aortic valvular stenosis or insufficiency. Mild mitral annular calcification. Trace mitral regurgitation. Pulmonary artery pressure of 25mmHg There is no pericardial effusion. <ELECTRONICALLY SIGNED> By: Zak Nova MD, FACC 10/16/17932 2 2 Zak Nova MD, FACC /INF
[2017-10-15 09:23] VITALS: BP 182/77
[2017-10-15 09:25] LABS: ABSOLUTE NEUTROPHILS 4.7 thou/uL (1.4-8.2); BASOPHILS 0.6 % (0.0-2.0); EOSINOPHILS 1.4 % (0.0-3.0); HEMATOCRIT 43.9 % (42.0-52.0); HEMOGLOBIN 15.2 gm/dL (14.0-18.0); LYMPHOCYTES 18.4 % (24.0-44.0); MCH 32.3 pg (26.0-34.0); MCHC 34.6 g/dL (28.0-37.0); MCV 93.4 fL (80.0-100.0); MONOCYTES 9.3 % (1.0-8.0); PLATELET COUNT 277 thou/uL (150-400); POLYS 70.3 % (36.0-66.0); RDW 12.6 % (10.5-14.5); WBC 6.7 thou/uL (4.0-11.0)
[2017-10-15 09:26] LABS: URINE BILIRUBIN NEGATIVE (Negative); URINE BLOOD NEGATIVE (Negative); URINE COLOR YELLOW; URINE GLUCOSE-RANDOM* NEGATIVE (Negative); URINE KETONES NEGATIVE (Negative); URINE LEUKOCYTES-REFLEX NEGATIVE (Negative); URINE PROTEIN (DIPSTICK) NEGATIVE (Negative); URINE UROBILINOGEN 0.2 E.U./dl (0.2-1.0)
[2017-10-15 09:26] LABS: MANUAL DIFF NO
[2017-10-15] MEDS ORDERED: PLAVIX 75 MG TA75 M1 PO (09:38)
[2017-10-15 09:41] LABS: ANION GAP 11 mmol/L (7-16); BUN 17 mg/dL (7-18); CALCIUM 9.3 mg/dL (8.5-10.1); CHLORIDE 104 mmol/L (98-107); CO2 24 mmol/L (21-32); CREATININE 1.3 mg/dL (0.7-1.3); GLUCOSE 209 mg/dL (74-106); POTASSIUM 4.5 mmol/L (3.5-5.1); SODIUM 139 mmol/L (136-145)
[2017-10-15 09:46] LABS: ALBUMIN 4.1 g/dL (3.4-5.0); ALKALINE PHOSPHATASE 66 U/L (46-116); SGOT 17 U/L (15-37); SGPT 30 U/L (30-65); TOTAL BILIRUBIN 0.6 mg/dL (<0.1-1.0); TOTAL PROTEIN 7.5 g/dL (6.4-8.2); TROPONIN-I < 0.04 ng/mL (<0.06)
[2017-10-15 16:19] VITALS: BP 148/79
[2017-10-15 16:21] LABS: CHOLESTEROL 201 mg/dL (<200); HDL CHOLESTEROL 56 mg/dL (>40); LDL CHOLESTEROL 74 mg/dL (<100); TC:HDL 3.6 Ratio (Not establshd); TRIGLYCERIDE 355 mg/dL (<150); VLDL 71 mg/dL (<40)
[2017-10-15 16:47] VITALS: BP 170/87
[2017-10-15 19:40] VITALS: BP 156/81
[2017-10-16 01:11] LABS: GLYCOHEMOGLOBIN (HGB A1C) 5.5 % (4.8-5.6)
[2017-10-16 03:50] VITALS: BP 114/74
[2017-10-16 07:40] VITALS: BP 167/75
[2017-10-16 10:25] VITALS: BP 167/75
== END 2017-10-16 10:41 | disposition home or self-care (01) | DRG 552 ==
LOC: ER 08:55 → EROBS 10:54 → 3W 10:54 → ENTRNSPT 10-16 10:33 → EDTRNSPTSTS 10-16 10:34 → 3W 10-16 10:41
PROVIDERS: Internal Medicine Endocrinology, Diabetes & Metabolism; Physician Assistant
DX: M48.061 Spinal stenosis, lumbar region without neurogenic claudication (principal); I10 Essential (primary) hypertension; E78.5 Hyperlipidemia, unspecified; R73.9 Hyperglycemia, unspecified; K21.9 Gastro-esophageal reflux disease without esophagitis; R20.2 Paresthesia of skin; Z88.1 Allergy status to other antibiotic agents; Z88.2 Allergy status to sulfonamides; Z88.8 Allergy status to other drugs, medicaments and biological substances; Z87.891 Personal history of nicotine dependence; Z86.73 Personal history of transient ischemic attack (TIA), and cerebral infarction without residual deficits; Z79.899 Other long term (current) drug therapy
CPT/HCPCS: 10779